=== PATIENT | female | born 1970 | race Caucasian/White ===

== ENCOUNTER 2018-08-27 11:26 | Day surgery (SDC) | payer OTHER ==
[~2018-08-27] VITALS: Ht 162.6 cm; Wt 76.0 kg
[~2018-08-27 11:26] MED LIST: ALBENDAZOLE200 MG PO; AMOX500 PO; EMVERM100 MG PO; IBUP600 PO; REESE'S PI50 MG/1 ML PO
--- NOTE | 2018-08-27 11:47 | NUR ---
Ambulatory in Day Surgery History, Chart, Medications and Allergies reviewed before start of procedure.Patient confirms NPO status and agrees with scheduled surgery. Lungs clear T/O to Auscultation. Patient States Post-Procedure ride home has been arranged.
--- NOTE | 2018-08-27 11:58 | NUR ---
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
--- NOTE | 2018-08-27 13:47 | NUR ---
08/27/18 1347 Zuly Hernandez History, Chart, Medications and Allergies reviewed before start of procedure. Patient confirms NPO status and agrees with scheduled surgery. PATIENT DETERMINED TO BE ASA APPROPRIATE FOR PROPOFOL SEDATION PRIOR TO START OF PROCEDURE BY DR. WISE. MONITOR INTACT WITH CONTINUOUS PULSE OXIMETRY AND INTERMITTENT BP.
--- NOTE | 2018-08-27 14:48 | NUR ---
1426 ASSUMED CARE OF PT. PT IS AWAKE. HAS SEEN PT. RX IS BEING CALLLED INTO [facility]. PT CALLED FRIEND TO PICK HER UP. VSS. PT TOLERATED WATER. NO COMPLAINTS.
--- NOTE | 2018-08-27 14:54 | NUR ---
PT UP TO THE BATHROOM. Discharge instructions reviewed with patient. Patient verbalizes understanding. Copy given to patient to take home. PT HAS RX. FRIEND WILL PICK PT UP. PT HAS ALL PERSONAL BELONGINGS. Discharged via wheelchair to private car for ride home.
== END 2018-08-27 22:48 | disposition home or self-care (01) ==
LOC: ORSCMMR 11:26 → ORD 13:15 → ORSCMMR 13:15
PROVIDERS: Student in an Organized Health Care Education/Training Program
PROC: 0DB58ZX Excision of Esophagus, Via Natural or Artificial Opening Endoscopic, Diagnostic (ICD-10-PCS; principal; 2018-08-27 13:15)
PROC: 0DB68ZX Excision of Stomach, Via Natural or Artificial Opening Endoscopic, Diagnostic (ICD-10-PCS; principal; 2018-08-27 13:15)
PROC: 0DB98ZX Excision of Duodenum, Via Natural or Artificial Opening Endoscopic, Diagnostic (ICD-10-PCS; principal; 2018-08-27 13:15)
DX: R13.10 Dysphagia, unspecified (principal); K20.9 Esophagitis, unspecified; K29.80 Duodenitis without bleeding; K29.70 Gastritis, unspecified, without bleeding; K44.9 Diaphragmatic hernia without obstruction or gangrene; Z86.19 Personal history of other infectious and parasitic diseases; Z87.11 Personal history of peptic ulcer disease; Z87.891 Personal history of nicotine dependence; Z79.899 Other long term (current) drug therapy
CPT/HCPCS: 84703; 88305; 88342; J2704; J7120